=== PATIENT | male | born 1980 | race Caucasian/White ===

== ENCOUNTER 2016-05-29 08:56 | Emergency (ER) | payer BC ==
[~2016-05-29] VITALS: Ht 180.3 cm; Wt 136.1 kg
[~2016-05-29 08:56] MED LIST: ACHD5005 PO; AMLO5TAB2 PO; HYDR1TAB PO; LIRA0.6P3 SQ; METF1000 PO; MTF500T PO; MULT1CAP27 PO; OMEP20TA7 PO; OMG1KC PO
[2016-05-29] MEDS ORDERED: KETOROLAC 30 MG/ML VIAL IVP STA (09:06)
[2016-05-29] MEDS ORDERED: fentaNYL INJECTION 100 MCG/2 ML AMP IVP STA (09:06)
[2016-05-29] MEDS ORDERED: NS IV 1000 ML 1,000 ML IV STA (09:06)
[2016-05-29] MEDS ORDERED: ONDANSETRON 4 MG/2 ML (SDV) Z0FRAN IVP ONE (09:15)
--- NOTE | 2016-05-29 09:28 | ED GU-Male ---
General Chief Complaint: Abdominal/GI Problems Stated Complaint: LEFT FLANK PAIN Nursing Triage Note: AMB TO ROOM WITH PARENT C/O L FLANK PAIN . FAMILY PMH OF KIDNEY STONES Source: patient Exam Limitations: no limitations History of Present Illness Time seen by provider: 09:00 Initial Comments Here with report of left-sided flank pain onset at about 730. It has moved more anterior and lower. States he's had 2 episodes of vomiting today with a severe pain. Does have strong family history of kidney stones. He has never personally had a kidney stone. States that when he woke up this morning he did feel a burning or pain at the tip of his penis. Denies blood or discharge with urination. Denies fever or chills. Timing/Duration: this morning Severity/Quality: moderate, severe, aching, sharp Location: left flank Radiation: LLQ Activities at Onset: none Modifying Factors: Worsens With Movement, Worsens With Resting Associated Symptoms: abdominal pain, No dysuria, No fever/chills, No lower back pain, nausea/vomiting, No urinary frequency Allergies and Home Medications Allergies Coded Allergies: No Known Drug Allergies (Unverified , 03/10/11) Home Medications Amlodipine Besylate 5 Mg Tablet, 5 MG PO DAILY, (Reported) Liraglutide 0.6 Mg/0.1 Ml Pen.injctr, 1.8 MG SQ DAILY, (Reported) Metformin HCl 1,000 Mg Tablet, 1,000 MG PO BID, (Reported) Multivitamin 1 Each Capsule, 1 EACH PO DAILY, (Reported) [place] 3 Polyunsat Fatty Acids 1,000 Mg Cap, 1,000 MG PO DAILY, (Reported) Omeprazole 20 Mg Tablet.dr, 20 MG PO DAILY, (Reported) Constitutional: see HPI EENTM: no symptoms reported Respiratory: no symptoms reported Cardiovascular: no symptoms reported Gastrointestinal: see HPI, nausea, vomiting Genitourinary: flank pain, pain Musculoskeletal: no symptoms reported Skin: no symptoms reported All Other Systemes Reviewed Negative Unless Noted: Yes Past Lqjdhcw-Khwabe-Bxvdct Hx Patient Social History Alcohol Use: Occasionally Uses Recreational Drug Use: No Smoking Status: Never a Smoker Recent Foreign Travel: No Contact w/Someone Who Travel: No Recent Infectious Disease Expo: No Recent Hopitalizations: No Surgeries HX Surgeries: Yes (right knee scope, ) Respiratory Hx Respiratory Disorders: Yes (SLEEP APNEA, USES CPAP) Cardiovascular Hx Cardiac Disorders: Yes Cardiac Disorders: Hypertension Neurological Hx Neurological Disorders: No Reproductive System Hx Reproductive Disorders: Yes Genitourinary Hx Genitourinary Disorders: No Gastrointestinal Hx Gastrointestinal Disorders: No Musculoskeletal Hx Musculoskeletal Disorders: No Endocrine Hx Endocrine Disorders: Yes Endocrine Disorders: Diabetes, Non-Insulin dep HEENT HX ENT Disorders: No Psychosocial Hx Psychiatric Problems: No Blood Transfusions Hx Blood Disorders: No Reviewed Nursing Assessment Reviewed/Agree w Nursing PMH: Yes Family Medical History Significant Family History: No Pertinent Family Hx Physical Exam Vital Signs Vital Sign - Last 12Hours 05/29/16 08:59 Temp 96.7 Pulse 66 Resp 18 B/P (MAP) 132/80 O2 Delivery Room Air Capillary Refill : Less Than 3 Seconds General Appearance: WD/WN, no apparent distress HEENT: PERRL/EOMI, pharynx normal Neck: full range of motion, supple Cardiovascular: regular rate, rhythm, no murmur Respiratory: lungs clear, normal breath sounds Gastrointestinal: non tender, soft Back: normal inspection, no CVA tenderness, no vertebral tenderness Extremities: non-tender, normal inspection Neurologic/Psychiatric: alert, oriented x 3 Skin: normal color, warm/dry Progress/Results/Core Measures Results/Orders Lab Results Laboratory Tests Test 05/29/16 09:25 05/29/16 09:38 Range/Units White Blood Count 8.9 4.3-11.0 10^3/uL Red Blood Count 5.68 4.35-5.85 10^6/uL Hemoglobin 15.7 13.3-17.7 G/DL Hematocrit 46 40-54 % Mean Corpuscular Volume 82 80-99 FL Mean Corpuscular Hemoglobin 28 25-34 PG Mean Corpuscular Hemoglobin Concent 34 32-36 G/DL Red Cell Distribution Width 14.4 10.0-14.5 % Platelet Count 252 130-400 10^3/uL Mean Platelet Volume 10.7 H 7.4-10.4 FL Neutrophils (%) (Auto) 49 42-75 % Lymphocytes (%) (Auto) 40 12-44 % Monocytes (%) (Auto) 9 0-12 % Eosinophils (%) (Auto) 2 0-10 % Basophils (%) (Auto) 0 0-10 % Neutrophils # (Auto) 4.4 1.8-7.8 X 10^3 Lymphocytes # (Auto) 3.5 1.0-4.0 X 10^3 Monocytes # (Auto) 0.8 0.0-1.0 X 10^3 Eosinophils # (Auto) 0.1 0.0-0.3 10^3/uL Basophils # (Auto) 0.0 0.0-0.1 10^3/uL Sodium Level 140 135-145 MMOL/L Potassium Level 3.9 3.6-5.0 MMOL/L Chloride Level 108 H 98-107 MMOL/L Carbon Dioxide Level 23 21-32 MMOL/L Anion Gap 9 5-14 MMOL/L Blood Urea Nitrogen 13 7-18 MG/DL Creatinine 1.03 0.60-1.30 MG/DL Estimat Glomerular Filtration Rate > 60 BUN/Creatinine Ratio 13 Glucose Level 125 H 70-105 MG/DL Calcium Level 9.3 8.5-10.1 MG/DL Total Bilirubin 1.2 H 0.1-1.0 MG/DL Aspartate Amino Transf (AST/SGOT) 122 H 5-34 U/L Alanine Aminotransferase (ALT/SGPT) 189 H 0-55 U/L Alkaline Phosphatase 73 40-136 U/L Total Protein 7.4 6.4-8.2 G/DL Albumin 4.4 3.2-4.5 G/DL Urine Color YELLOW Urine Clarity CLEAR Urine pH 5 5-9 Urine Specific [place] 1.025 H 1.016-1.022 Urine Protein 1+ H NEGATIVE Urine Glucose (UA) NEGATIVE NEGATIVE Urine Ketones NEGATIVE NEGATIVE Urine Nitrite NEGATIVE NEGATIVE Urine Bilirubin NEGATIVE NEGATIVE Urine Urobilinogen NORMAL NORMAL MG/DL Urine Leukocyte Esterase NEGATIVE NEGATIVE Urine RBC (Auto) 1+ H NEGATIVE Urine RBC RARE /HPF Urine WBC RARE /HPF Urine Squamous Epithelial Cells 0-2 /HPF Urine Crystals NONE /LPF Urine Bacteria NEGATIVE /HPF Urine Casts NONE /LPF Urine Mucus MODERATE H /LPF Urine Culture Indicated NO My Orders Orders - JANNY BERGER MD Cbc With Automated Diff (05/29/16 09:06) Comprehensive Metabolic Panel (05/29/16 09:06) Ua Culture If Indicated (05/29/16 09:06) Ct Abd/Pelvis Wo(Kidney Stone) (05/29/16 09:06) Fentanyl Injection (Sublimaze Injection (05/29/16 09:06) Ketorolac Injection (Toradol Injection) (05/29/16 09:06) Ondansetron Injection (Zofran Injectio (05/29/16 09:15) Ns Iv 1000 Ml (Sodium Chloride 0.9%) (05/29/16 09:06) Saline Lock/Iv-Start (05/29/16 09:06) Medications Given in ED Current Medications Medications Dose Ordered Sig/Leon Route Start Time Stop Time Status Last Admin Dose Admin Ondansetron HCl 4 mg ONCE ONCE IVP 05/29/16 09:15 05/29/16 09:16 DC 05/29/16 09:19 4 MG Vital Signs/I&O Vital Sign - Last 12Hours 05/29/16 08:59 Temp 96.7 Pulse 66 Resp 18 B/P (MAP) 132/80 O2 Delivery Room Air Blood Pressure Mean: 97 Progress Note : Progress Note Seen and evaluated. IV, labs and UA ordered. CT abdomen and pelvis kidney stone protocol ordered. Toradol 30 mg IV and fentanyl 75 g IV ordered as well as normal saline 1 L bolus. Monitor patient. Pain resolved after meds and urination for UA. 1045: No return of pain. CT results noted below. I do believe that he probably has passed a small stone. We will initiate outpatient Keflex treatment for 3 days. Discharged home with return precautions. Patient verbalize understanding instructions and agreement with plan. Diagnostic Imaging Diagonstic Imaging: CT Plain Films/CT/US/NM/MRI: abdomen, pelvis Comments [facility] [place], [place] NAME: PHIL GUY [facility] REC#: [id number] PT STATUS: REG ER : 1980 PHYSICIAN: JANNY BERGER MD ADMIT DATE: 05/29/16/ER Draft Date of Exam:05/29/16 CT ABD/PELVIS WO(KIDNEY STONE) PROCEDURE: CT urinary tract, rule out kidney stone. TECHNIQUE: Multiple contiguous axial images were obtained through the abdomen and pelvis without the use of intravenous contrast. INDICATION: Abdominal pain. FINDINGS: The lung bases appear clear. The liver has diffuse hepatic steatosis. The spleen, the pancreas, and adrenals appear unremarkable. Persistent clips are seen. The kidneys demonstrate up to 2 mm nonobstructive stones bilaterally. There is no ureteric or bladder stones. No hydronephrosis. There is no bowel obstruction. No significant free fluid or fluid collection in the abdomen or pelvis seen. The abdominal aorta is normal in caliber. No periaortic significantly enlarged lymph nodes. The osseous structures demonstrate sclerotic focus in the left sacral ala measuring 8 mm in size similar to 2007 exam compatible with a bone island. IMPRESSION: Nonobstructive kidney stones up to 2 mm in size. No hydronephrosis. 2. Diffuse hepatic steatosis. Dictated on workstation # [id number] Dict: 05/29/16 1005 Trans: 05/29/16 1026 [facility] [id number] Interpreted by: DAYANA OSCAR MD Electronically signed by: Departure Impression Impression: Primary Impression: Kidney stone on left side Disposition: HOME, SELF-CARE Condition: Improved Departure-Patient Inst. Decision time for Depature: 10:50 Referrals: MARK GOVEA DO (PCP/Family) Primary Care Physician Patient Instructions: Kidney Stones (DC) Add. Discharge Instructions: All discharge instructions reviewed with patient and/or family. Voiced understanding. Drink plenty of fluids. You may take ibuprofen 800 mg every 8 hours as needed for pain. Follow-up with your Dr. in a few days for recheck. You may also follow-up with the urologist as needed. Return for worse pain, blood in your urine, fever, weakness, breathing problems or other concerns as needed. Take medications as directed. Scripts Cephalexin (Cephalexin) 500 Mg Tablet 500 MG PO BID, #6 TAB 0 Refills Prov: JANNY BERGER MD 05/29/16 JANNY BERGER MD May 29, 2016 09:28
[2016-05-29 09:32] LABS: BASOPHILS % (AUTO) 0 % (0-10); EOSINOPHILS # (AUTO) 0.1 10^3/uL (0.0-0.3); EOSINOPHILS % (AUTO) 2 % (0-10); LYMPHOCYTES # (AUTO) 3.5 X 10^3 (1.0-4.0); LYMPHOCYTES % (AUTO) 40 % (12-44); MEAN CORPUSCULAR HEMOGLOBIN 28 PG (25-34); MEAN CORPUSCULAR HGB CONC 34 G/DL (32-36); MEAN CORPUSCULAR VOLUME 82 FL (80-99); MEAN PLATELET VOLUME 10.7 FL (7.4-10.4); MONOCYTES # (AUTO) 0.8 X 10^3 (0.0-1.0); MONOCYTES % (AUTO) 9 % (0-12); NEUTROPHILS # (AUTO) 4.4 X 10^3 (1.8-7.8); NEUTROPHILS % (AUTO) 49 % (42-75); PLATELET COUNT 252 10^3/uL (130-400); RED BLOOD COUNT 5.68 10^6/uL (4.35-5.85); RED CELL DISTRIBUTION WIDTH 14.4 % (10.0-14.5); WHITE BLOOD COUNT 8.9 10^3/uL (4.3-11.0)
[2016-05-29 09:44] LABS: BILIRUBIN,URINE NEGATIVE (NEGATIVE); KETONES,URINE NEGATIVE (NEGATIVE); LEUKOCYTE ESTERASE ,URINE NEGATIVE (NEGATIVE); NITRITE,URINE NEGATIVE (NEGATIVE); PH,URINE 5 (5-9); PROTEIN,URINE 1+ (NEGATIVE); UROBILINOGEN,URINE NORMAL (NORMAL)
[2016-05-29 09:53] LABS: SQUAMOUS EPITHELIAL CELL,UR 0-2 /HPF; WBC,URINE RARE /HPF
[2016-05-29 09:56] LABS: ALANINE AMINOTRANSFERASE 189 U/L (0-55); ALBUMIN 4.4 G/DL (3.2-4.5); ANION GAP 9 MMOL/L (5-14); ASPARTATE AMINO TRANSFERASE 122 U/L (5-34); BILIRUBIN,TOTAL 1.2 MG/DL (0.1-1.0); BLOOD UREA NITROGEN 13 MG/DL (7-18); BUN/CREATININE RATIO 13; CALCIUM 9.3 MG/DL (8.5-10.1); CARBON DIOXIDE 23 MMOL/L (21-32); CHLORIDE 108 MMOL/L (98-107); CREATININE SERUM 1.03 MG/DL (0.60-1.30); GFR ESTIMATED > 60; GLUCOSE 125 MG/DL (70-105); POTASSIUM 3.9 MMOL/L (3.6-5.0); SODIUM 140 MMOL/L (135-145); TOTAL PROTEIN 7.4 G/DL (6.4-8.2)
--- NOTE | 2016-05-29 10:26 | Diagnostic Imaging Report ---
PROCEDURE: CT urinary tract, rule out kidney stone. TECHNIQUE: Multiple contiguous axial images were obtained through the abdomen and pelvis without the use of intravenous contrast. INDICATION: Abdominal pain. FINDINGS: The lung bases appear clear. The liver has diffuse hepatic steatosis. The spleen, the pancreas, and adrenals appear unremarkable. Persistent clips are seen. The kidneys demonstrate up to 2 mm nonobstructive stones bilaterally. There is no ureteric or bladder stones. No hydronephrosis. There is no bowel obstruction. No significant free fluid or fluid collection in the abdomen or pelvis seen. The abdominal aorta is normal in caliber. No periaortic significantly enlarged lymph nodes. The osseous structures demonstrate sclerotic focus in the left sacral ala measuring 8 mm in size similar to 2007 exam compatible with a bone island. IMPRESSION: 1. Nonobstructive kidney stones up to 2 mm in size. No hydronephrosis. 2. Diffuse hepatic steatosis. Dictated by: Dictated on workstation # [id number]
[2016-05-29] MEDS ORDERED: CEPH500T PO (10:55)
[2016-05-29 11:12] VITALS: BP 128/73
--- OUTSIDE RECORDS SUMMARY | 2016-06-23 04:16 | XMS REPORT | Continuity of Care Document ---
Author Author [facility] Organization [facility] Address Unknown Phone Unavailable Allergies Active Description Code Type Severity Reaction Onset Reported/Identified Relationship to Patient Clinical Status Yes No Known Drug Allergies [id number] Drug Allergy Unknown N/ A 03/10/2011 Medications Problems Date Dx Coded Attending Type Code Diagnosis Diagnosed By 03/10/2011 Ot 789.01 03/16/2011 Ot 251.1 03/16/2011 Ot 278.00 03/16/2011 Ot 401.9 03/16/2011 Ot 571.8 03/16/2011 Ot 574.00 03/16/2011 Ot V04.81 03/16/2011 Ot V85.36 12/12/2014 Ot 401.9 12/12/2014 Ot 786.09 12/12/2014 Ot 574.20 01/02/2015 Ot 401.9 01/02/2015 Ot 786.09 01/02/2015 Ot 574.20 04/28/2015 Ot 401.9 04/28/2015 Ot 786.09 04/28/2015 Ot 574.20 04/28/2015 NONI SNOWDEN, SKY Jensen Ot K21.9 04/28/2015 NONI SNOWDEN, SKY Jensen Ot R05 04/28/2015 NONI SNOWDEN, SKY Jensen Ot R13.19 04/28/2015 NONI SNOWDEN, SKY Jensen Ot Z01.818 04/28/2015 NONI SNOWDEN, SKY Jensen Ot K21.9 04/28/2015 NONI SNOWDEN, SKY Jensen Ot K44.9 04/28/2015 NONI SNOWDEN, SKY Jensen Ot R05 05/11/2015 NONI SNOWDEN, SKY Jensen Ot K21.9 05/11/2015 NONI SNOWDEN, SKY Jensen Ot K44.9 05/11/2015 NONI SNOWDEN, SKY Jensen Ot R05 01/02/2016 Ot 574.20 CHOLELITHIASIS NOS 06/01/2016 JANNY BERGER MD Ot 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 , 06/01/2016 JANNY BERGER MD, Ot I10 ESSENTIAL (PRIMARY) HYPERTENSION 06/01/2016 JANNY BERGER MD, Ot K76.0 FATTY (CHANGE OF) LIVER, NOT ELSEWHERE C 06/01/2016 JANNY BERGER MD, Ot N20.0 CALCULUS OF KIDNEY 06/01/2016 JANNY BERGER MD, Ot R10.32 LEFT LOWER QUADRANT PAIN 06/01/2016 JANNY BERGER MD, Ot Z79.84 LONG-TERM (CURRENT) USE OF ORAL HYPOGLYC 06/01/2016 JANNY BERGER MD, Ot Z79.899 OTHER LONG-TERM (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 THERAPY Procedures Results Test Result Range Complete blood count (CBC) with automated white blood cell (WBC) differential - 05/29/16 09:25 Blood leukocytes automated count (number/volume) 8.9 10*3/ uL 4.3-11.0 Blood erythrocytes automated count (number/volume) 5.68 10*6 /uL 4.35-5.85 Venous blood hemoglobin measurement (mass/volume) 15.7 g/dL 13.3-17.7 Blood hematocrit (volume fraction) 46 % 40-54 Automated erythrocyte mean corpuscular volume 82 [foz_us] 80-99 Automated erythrocyte mean corpuscular hemoglobin (mass per erythrocyte) 28 pg 25-34 Automated erythrocyte mean corpuscular hemoglobin concentration measurement ( mass/volume) 34 g/dL 32-36 Automated erythrocyte distribution width ratio 14.4 % 10.0-14.5 Automated blood platelet count (count/volume) 252 10*3/uL 130-400 Automated blood platelet mean volume measurement 10.7 [foz_ us] 7.4-10.4 Automated blood neutrophils/100 leukocytes 49 % 42-75 Automated blood lymphocytes/100 leukocytes 40 % 12-44 Blood monocytes/100 leukocytes 9 % 0-12 Automated blood eosinophils/100 leukocytes 2 % 0-10 Automated blood basophils/100 leukocytes 0 % 0-10 Blood neutrophils automated count (number/volume) 4.4 10*3 1.8-7.8 Blood lymphocytes automated count (number/volume) 3.5 10*3 1.0-4.0 Blood monocytes automated count (number/volume) 0.8 10*3 0.0-1.0 Automated eosinophil count 0.1 10*3/uL 0.0-0.3 Automated blood basophil count (count/volume) 0.0 10*3/uL 0.0-0.1 Comprehensive metabolic panel - 05/29/16 09:25 Serum or plasma sodium measurement (moles/volume) 140 mmol/ L 135-145 Serum or plasma potassium measurement (moles/volume) 3.9 mmol/L 3.6-5.0 Serum or plasma chloride measurement (moles/volume) 108 mmol /L 98-107 Carbon dioxide 23 mmol/L 21-32 Serum or plasma anion gap determination (moles/volume) 9 mmol/L 5-14 Serum or plasma urea nitrogen measurement (mass/volume) 13 mg/dL 7-18 Serum or plasma creatinine measurement (mass/volume) 1.03 mg /dL 0.60-1.30 Serum or plasma urea nitrogen/creatinine mass ratio 13 NRG Serum or plasma creatinine measurement with calculation of estimated glomerular filtration rate > NRG Serum or plasma glucose measurement (mass/volume) 125 mg/dL 70-105 Serum or plasma calcium measurement (mass/volume) 9.3 mg/dL 8.5-10.1 Serum or plasma total bilirubin measurement (mass/volume) 1.2 mg/dL 0.1-1.0 Serum or plasma alkaline phosphatase measurement (enzymatic activity/volume) 73 U/L 40-136 Serum or plasma aspartate aminotransferase measurement (enzymatic activity/ volume) 122 U/L 5-34 Serum or plasma alanine aminotransferase measurement (enzymatic activity/volume ) 189 U/L 0-55 Serum or plasma protein measurement (mass/volume) 7.4 g/dL 6.4-8.2 Serum or plasma albumin measurement (mass/volume) 4.4 g/dL 3.2-4.5 Complete urinalysis with reflex to culture - 05/29/16 09:38 Urine color determination YELLOW NRG Urine clarity determination CLEAR NRG Urine pH measurement by test strip 5 5- 9 Specific gravity of urine by test strip 1.025 1.016-1.022 Urine protein assay by test strip, semi-quantitative 1+ NEGATIVE Urine glucose detection by automated test strip NEGATIVE NEGATIVE Erythrocytes detection in urine sediment by light microscopy 1+ NEGATIVE Urine ketones detection by automated test strip NEGATIVE NEGATIVE Urine nitrite detection by test strip NEGATIVE NEGATIVE Urine total bilirubin detection by test strip NEGATIVE NEGATIVE Urine urobilinogen measurement by automated test strip (mass/volume) NORMAL NORMAL Urine leukocyte esterase detection by dipstick NEGATIVE NEGATIVE Automated urine sediment erythrocyte count by microscopy (number/high power field) RARE NRG Automated urine sediment leukocyte count by microscopy (number/high power field ) RARE NRG Bacteria detection in urine sediment by light microscopy NEGATIVE NRG Squamous epithelial cells detection in urine sediment by light microscopy 0-2 NRG Crystals detection in urine sediment by light microscopy NONE NRG Casts detection in urine sediment by light microscopy NONE NRG Mucus detection in urine sediment by light microscopy MODERATE NRG Complete urinalysis with reflex to culture NO NRG Encounters ACCT No. Visit Date/Time Discharge Status Pt. Type Provider Facility Loc./Unit Complaint [id number] 05/29/2016 08:58:00 2016 11:17:00 DIS Outpatient JANNY BERGER MD [facility] ER LEFT FLANK PAIN [id number] 04/28/2015 07:20:00 2015 09:20:00 DIS Outpatient SKY CHENEY MD [facility] [id number] 04/26/2015 05:37:00 ACT Outpatient SKY CHENEY MD [facility] PREOP [id number] 12/12/2014 15:35:00 Document Registration [id number] 12/12/2014 15:35:00 Document Registration [id number] 03/14/2011 10:00:00 Document Registration [id number] 06/11/2010 15:17:00 Document Registration
== END 2016-05-29 11:17 | disposition home or self-care (01) ==
LOC: EDUNIT# 08:56 → ER 08:58
DX: N20.0 Calculus of kidney (principal); K76.0 Fatty (change of) liver, not elsewhere classified; D11.9 Benign neoplasm of major salivary gland, unspecified; I10 Essential (primary) hypertension; Z79.84 Long term (current) use of oral hypoglycemic drugs; Z79.899 Other long term (current) drug therapy
CPT/HCPCS: 36415; 74176; 80053; 81000; 85025; 96361; 96374; 96375

== ENCOUNTER 2017-04-14 08:26 | Emergency (ER) | payer BC ==
[~2017-04-14] VITALS: Ht 180.3 cm; Wt 136.1 kg
[~2017-04-14 08:26] MED LIST changes: +CEPH500T PO
[2017-04-14] MEDS ORDERED: KETOROLAC 30 MG/ML VIAL ONE (09:36)
[2017-04-14 09:40] LABS: BASOPHILS % (AUTO) 0 % (0-10); EOSINOPHILS % (AUTO) 0 % (0-10); HEMATOCRIT 46 % (40-54); HEMOGLOBIN 15.7 G/DL (13.3-17.7); LYMPHOCYTES # (AUTO) 2.3 X 10^3 (1.0-4.0); LYMPHOCYTES % (AUTO) 23 % (12-44); MEAN CORPUSCULAR HEMOGLOBIN 27 PG (25-34); MEAN CORPUSCULAR HGB CONC 34 G/DL (32-36); MEAN CORPUSCULAR VOLUME 80 FL (80-99); MONOCYTES # (AUTO) 1.1 X 10^3 (0.0-1.0); MONOCYTES % (AUTO) 11 % (0-12); NEUTROPHILS # (AUTO) 6.7 X 10^3 (1.8-7.8); NEUTROPHILS % (AUTO) 66 % (42-75); PLATELET COUNT 268 10^3/uL (130-400); RED BLOOD COUNT 5.72 10^6/uL (4.35-5.85); RED CELL DISTRIBUTION WIDTH 14.5 % (10.0-14.5); WHITE BLOOD COUNT 10.2 10^3/uL (4.3-11.0)
[2017-04-14] MEDS ORDERED: NS IV 1000 ML 1,000 ML IV SCH (09:45)
[2017-04-14] MEDS ORDERED: KETOROLAC 15 MG/ML VIAL IVP ONE (09:45)
[2017-04-14 09:51] LABS: ALANINE AMINOTRANSFERASE 173 U/L (0-55); ALBUMIN 4.5 GM/DL (3.2-4.5); ALKALINE PHOSPHATASE 96 U/L (40-136); BILIRUBIN,TOTAL 0.8 MG/DL (0.1-1.0); BUN/CREATININE RATIO 14; CALCIUM 9.7 MG/DL (8.5-10.1); CARBON DIOXIDE 22 MMOL/L (21-32); CHLORIDE 106 MMOL/L (98-107); CREATININE SERUM 1.28 MG/DL (0.60-1.30); GFR ESTIMATED > 60; GLUCOSE 129 MG/DL (70-105); SODIUM 140 MMOL/L (135-145)
[2017-04-14 10:38] LABS: BILIRUBIN,URINE NEGATIVE (NEGATIVE); CLARITY,URINE CLEAR; COLOR,URINE YELLOW; GLUCOSE, URINE (UA) NEGATIVE (NEGATIVE); KETONES,URINE NEGATIVE (NEGATIVE); LEUKOCYTE ESTERASE ,URINE NEGATIVE (NEGATIVE); NITRITE,URINE NEGATIVE (NEGATIVE); PH,URINE 6 (5-9); PROTEIN,URINE NEGATIVE (NEGATIVE); UROBILINOGEN,URINE NORMAL (NORMAL)
[2017-04-14 10:45] LABS: BACTERIA,URINE NEGATIVE /HPF; RBC,URINE 0-2 /HPF
[2017-04-14] MEDS ORDERED: fentaNYL INJECTION 100 MCG/2 ML AMP IVP ONE (11:15)
--- NOTE | 2017-04-14 11:20 | ED Abdominal Pain ---
General Chief Complaint: Abdominal/GI Problems Stated Complaint: POSS KIDNEY STONE Nursing Triage Note: C/O L-FLANK PAIN THAT RADIATES TO LLQ ET L-GROIN THAT STARTED THIS AM AT 0100. PT. HX OF KIDNEY STONES. STATES HE FEELS ALMOST LIKE HE'S CONSTIPATED Sepsis Screen: No Definite Risk Source of Information: Patient, Spouse Exam Limitations: No Limitations History of Present Illness Date Seen by Provider: Apr 14, 2017 Time Seen by Provider: 11:00 Initial Comments Patient presents to ER by private conveyance with a chief complaint of sharp left-sided flank pain that radiates down into his groin and left testicle. He has no swelling tenderness of the testicle. He says this is similar to his kidney stone from before. No hematuria. He is having some nausea but no vomiting. The pain meds helped a little bit but he still needing a little more. No sweats or fevers or chills. Allergies and Home Medications Allergies Coded Allergies: No Known Drug Allergies (Unverified , 03/10/11) Home Medications Amlodipine Besylate 5 Mg Tablet, 5 MG PO DAILY, (Reported) Cephalexin 500 Mg Tablet, 500 MG PO BID, #6 Ref 0 Prescribed by: JANNY BERGER on 05/29/16 1055 Liraglutide 0.6 Mg/0.1 Ml Pen.injctr, 1.8 MG SQ DAILY, (Reported) Metformin HCl 1,000 Mg Tablet, 1,000 MG PO BID, (Reported) Multivitamin 1 Each Capsule, 1 EACH PO DAILY, (Reported) [place] 3 Polyunsat Fatty Acids 1,000 Mg Cap, 1,000 MG PO DAILY, (Reported) Omeprazole 20 Mg Tablet.dr, 20 MG PO DAILY, (Reported) Review of Systems Constitutional: No chills, No fever, No malaise Respiratory: Denies Cough, Denies Shortness of Air Cardiovascular: Denies Chest Pain, Denies Edema Gastrointestinal: See HPI, Denies Abdomen Distended, Abdominal Pain Genitourinary: Denies Burning, Denies Discharge Musculoskeletal: No back pain, No joint pain Skin: No pruritus, No rash Psychiatric/Neurological: Denies Headache, Denies Numbness Past Qwybpus-Jhlcow-Udkfdv Hx Patient Social History Alcohol Use: Denies Use Recreational Drug Use: No Smoking Status: Never a Smoker Recent Foreign Travel: No Contact w/Someone Who Travel: No Recent Infectious Disease Expo: No Recent Hopitalizations: No Cardiovascular Cardiac Disorders: Hypertension Reproductive System Hx Reproductive Disorders: Yes Endocrine Endocrine Disorders: Diabetes, Non-Insulin dep Family Medical History Significant Family History: No Pertinent Family Hx Physical Exam Vital Signs VS - Last 72 Hours, by Label 04/14/17 04/14/17 04/14/17 04/14/17 09:10 09:42 09:42 11:25 Temp 97.7 97.7 97.7 97.7 Pulse 83 Resp 20 B/P (MAP) 145/90 (108) Pulse Ox 96 O2 Delivery Room Air Capillary Refill : Less Than 3 Seconds General Appearance: WD/WN, mild distress HEENT: PERRL/EOMI, pharynx normal Neck: non-tender, supple, normal inspection Respiratory: no respiratory distress, no accessory muscle use Cardiovascular: normal peripheral pulses, regular rate, rhythm, no edema Gastrointestinal: normal bowel sounds, soft, other (left flank tenderness and left CVA tenderness percussion. He would prefer to wait there is) Extremities: normal inspection, no pedal edema, normal capillary refill Neurologic/Psychiatric: alert, oriented x 3 Skin: normal color, warm/dry Progress/Results/Core Measures Results/Orders Lab Results Laboratory Tests Test 04/14/17 09:22 04/14/17 10:25 Range/Units White Blood Count 10.2 4.3-11.0 10^3/uL Red Blood Count 5.72 4.35-5.85 10^6/uL Hemoglobin 15.7 13.3-17.7 G/DL Hematocrit 46 40-54 % Mean Corpuscular Volume 80 80-99 FL Mean Corpuscular Hemoglobin 27 25-34 PG Mean Corpuscular Hemoglobin Concent 34 32-36 G/DL Red Cell Distribution Width 14.5 10.0-14.5 % Platelet Count 268 130-400 10^3/uL Mean Platelet Volume 11.0 H 7.4-10.4 FL Neutrophils (%) (Auto) 66 42-75 % Lymphocytes (%) (Auto) 23 12-44 % Monocytes (%) (Auto) 11 0-12 % Eosinophils (%) (Auto) 0 0-10 % Basophils (%) (Auto) 0 0-10 % Neutrophils # (Auto) 6.7 1.8-7.8 X 10^3 Lymphocytes # (Auto) 2.3 1.0-4.0 X 10^3 Monocytes # (Auto) 1.1 H 0.0-1.0 X 10^3 Eosinophils # (Auto) 0.0 0.0-0.3 10^3/uL Basophils # (Auto) 0.0 0.0-0.1 10^3/uL Sodium Level 140 135-145 MMOL/L Potassium Level 4.0 3.6-5.0 MMOL/L Chloride Level 106 98-107 MMOL/L Carbon Dioxide Level 22 21-32 MMOL/L Anion Gap 12 5-14 MMOL/L Blood Urea Nitrogen 18 7-18 MG/DL Creatinine 1.28 0.60-1.30 MG/DL Estimat Glomerular Filtration Rate > 60 BUN/Creatinine Ratio 14 Glucose Level 129 H 70-105 MG/DL Calcium Level 9.7 8.5-10.1 MG/DL Total Bilirubin 0.8 0.1-1.0 MG/DL Aspartate Amino Transf (AST/SGOT) 110 H 5-34 U/L Alanine Aminotransferase (ALT/SGPT) 173 H 0-55 U/L Alkaline Phosphatase 96 40-136 U/L Total Protein 8.0 6.4-8.2 GM/DL Albumin 4.5 3.2-4.5 GM/DL Urine Color YELLOW Urine Clarity CLEAR Urine pH 6 5-9 Urine Specific [place] 1.015 L 1.016-1.022 Urine Protein NEGATIVE NEGATIVE Urine Glucose (UA) NEGATIVE NEGATIVE Urine Ketones NEGATIVE NEGATIVE Urine Nitrite NEGATIVE NEGATIVE Urine Bilirubin NEGATIVE NEGATIVE Urine Urobilinogen NORMAL NORMAL MG/DL Urine Leukocyte Esterase NEGATIVE NEGATIVE Urine RBC (Auto) 1+ H NEGATIVE Urine RBC 0-2 /HPF Urine WBC NONE /HPF Urine Squamous Epithelial Cells 2-5 /HPF Urine Crystals NONE /LPF Urine Bacteria NEGATIVE /HPF Urine Casts NONE /LPF Urine Mucus SMALL H /LPF Urine Culture Indicated NO My Orders Orders - SOPHY SWAIN Iv 1000 Ml (Sodium Chloride 0.9%) (04/14/17 09:45) Ketorolac Injection (Toradol Injection) (04/14/17 09:45) Ua Culture If Indicated (04/14/17 09:34) Cbc With Automated Diff (04/14/17 09:34) Comprehensive Metabolic Panel (04/14/17 09:34) Ketorolac Injection (Toradol Injection) (04/14/17 09:36) Ct Abd/Pelvis Wo(Kidney Stone) (04/14/17 11:05) Fentanyl Injection (Sublimaze Injection (04/14/17 11:15) Medications Given in ED Current Medications Medications Dose Ordered Sig/Leon Route Start Time Stop Time Status Last Admin Dose Admin Fentanyl Citrate 50 mcg ONCE ONCE IVP 04/14/17 11:15 04/14/17 11:16 DC 04/14/17 11:25 50 MCG Ketorolac Tromethamine 15 mg ONCE ONCE IVP 04/14/17 09:45 04/14/17 09:46 DC 04/14/17 09:42 15 MG Vital Signs/I&O Vital Sign - Last 12Hours 04/14/17 04/14/17 04/14/17 04/14/17 09:10 09:42 09:42 11:25 Temp 97.7 97.7 97.7 97.7 Pulse 83 Resp 20 B/P (MAP) 145/90 (108) Pulse Ox 96 O2 Delivery Room Air Blood Pressure Mean: 108 Diagnostic Imaging Diagonstic Imaging: CT Plain Films/CT/US/NM/MRI: abdomen, pelvis Comments VIA [facility] [place] [place] NAME: [facility] REC#: [id number] PT STATUS: REG ER : 1980 PHYSICIAN: SOPHY SWAIN MD ADMIT DATE: 04/14/17/ER Draft Date of Exam:04/14/17 CT ABD/PELVIS WO(KIDNEY STONE) PROCEDURE: CT urinary tract, rule out kidney stone. TECHNIQUE: Multiple contiguous axial images were obtained through the abdomen and pelvis without the use of intravenous contrast. INDICATION: Left flank pain. COMPARISON: Study compared 05/29/2016. FINDINGS: There is a tiny 1.4 mm calculus which appears to be entirely within the lumen of the urinary bladder and projects just slightly left of midline, believed to have recently passed through the left UVJ. There is very slight left ureteral ectasia and mild left residual hydronephrosis. A recently passed stone is felt most likely. There is very mild perinephric and periureteric edema. There are tiny additional intrarenal nonobstructing stones bilaterally, no opaque ureteral calculi are found at this exam. There is no diverticulitis or appendicitis. Prostate and seminal vesicles unremarkable. There is no pathological fecal loading and there is no bowel or biliary obstruction. There is a fatty liver with an absent gallbladder. The pancreas is normal. The adrenals negative. The aorta is nonaneurysmal. IMPRESSION: 1. There is a tiny stone within the lumen of the urinary bladder layering dependently just left of midline, likely recently passed from the left and accounting for the minimal left hydronephrosis and ureteral ectasia. There are additional punctate nonobstructing intrarenal stones bilaterally. 2. Fatty liver without biliary dilatation post cholecystectomy and a nonacute pancreas. 3. No acute bowel pathology. Dictated on workstation # [id number] Dict: 04/14/17 1134 Trans: 04/14/17 1142 CV [id number] Interpreted by: ANGEL CARMONA Electronically signed by: Reviewed: Reviewed by Me Departure Impression Impression: Primary Impression: Urinary bladder calculus Disposition: HOME, SELF-CARE Condition: Improved Departure-Patient Inst. Decision time for Depature: 12:54 Referrals: MARK GOVEA DO (PCP/Family) Primary Care Physician Patient Instructions: Kidney Stones (DC) Add. Discharge Instructions: Drink lots of water. Caffeine is okay. Strain your urine seeking catch the stone. Use the pain medicine every 6 hours 1 tablet as needed to control your pain. He can also use ibuprofen 800 mg every 8 hours. If you begin to have fevers, chills or nausea and vomiting you can return to your doctor to have this looked at. Otherwise expect even at day or 2 after you've passed the stone to have some pain or possibly discolored urine. All discharge instructions reviewed with patient and/or family. Voiced understanding. Scripts Hydrocodone Bit/Acetaminophen (Hydrocodone/Acetaminophen 5/325mg Tablet) 1 Tab Tab 1 EACH PO Q6H Y for BREAKTHROUGH PAIN, #15 TAB 0 Refills Prov: SOPHY SWAIN 04/14/17 Copy Copies To 1: MARK GOVEA TITUS J Apr 14, 2017 11:20
--- NOTE | 2017-04-14 11:42 | Diagnostic Imaging Report ---
PROCEDURE: CT urinary tract, rule out kidney stone. TECHNIQUE: Multiple contiguous axial images were obtained through the abdomen and pelvis without the use of intravenous contrast. INDICATION: Left flank pain. COMPARISON: Study compared 05/29/2016. FINDINGS: There is a tiny 1.4 mm calculus which appears to be entirely within the lumen of the urinary bladder and projects just slightly left of midline, believed to have recently passed through the left UVJ. There is very slight left ureteral ectasia and mild left residual hydronephrosis. A recently passed stone is felt most likely. There is very mild perinephric and periureteric edema. There are tiny additional intrarenal nonobstructing stones bilaterally, no opaque ureteral calculi are found at this exam. There is no diverticulitis or appendicitis. Prostate and seminal vesicles unremarkable. There is no pathological fecal loading and there is no bowel or biliary obstruction. There is a fatty liver with an absent gallbladder. The pancreas is normal. The adrenals negative. The aorta is nonaneurysmal. IMPRESSION: 1. There is a tiny stone within the lumen of the urinary bladder layering dependently just left of midline, likely recently passed from the left and accounting for the minimal left hydronephrosis and ureteral ectasia. There are additional punctate nonobstructing intrarenal stones bilaterally. 2. Fatty liver without biliary dilatation post cholecystectomy and a nonacute pancreas. 3. No acute bowel pathology. Dictated by: Dictated on workstation # [id number]
[2017-04-14] MEDS ORDERED: ACHD5005 PO (12:56)
[2017-04-14 13:22] VITALS: BP 136/88
--- OUTSIDE RECORDS SUMMARY | 2017-04-17 12:12 | XMS REPORT | Continuity of Care Document ---
Author Author [facility] Organization [facility] Address Unknown Phone Unavailable Allergies Active Description Code Type Severity Reaction Onset Reported/Identified Relationship to Patient Clinical Status Yes No Known Drug Allergies [id number] Drug Allergy Unknown N/A 03/10/2011 Medications There is no data. 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, 05/29/2016 JANNY BERGER MD Ot I10 ESSENTIAL (PRIMARY) HYPERTENSION 05/29/2016 JANNY BERGER MD Ot K76.0 FATTY (CHANGE OF) LIVER, NOT ELSEWHERE C 05/29/2016 JANNY BERGER MD Ot N20.0 CALCULUS OF KIDNEY 05/29/2016 JANNY BERGER MD Ot R10.32 LEFT LOWER QUADRANT PAIN 05/29/2016 JANNY BERGER MD 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 05/29/2016 JANNY BERGER MD Ot 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 06/01/2016 JANNY BERGER MD Ot 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, 06/01/2016 JANNY BERGER MD Ot I10 ESSENTIAL (PRIMARY) HYPERTENSION 06/01/2016 JANNY BERGER MD Ot K76.0 FATTY (CHANGE OF) LIVER, NOT ELSEWHERE C 06/01/2016 JANNY BERGER MD Ot N20.0 CALCULUS OF KIDNEY 06/01/2016 JANNY BERGER MD Ot R10.32 LEFT LOWER QUADRANT PAIN 06/01/2016 JANNY BERGER MD Ot Z79.84 [facility] (CURRENT) USE OF ORAL HYPOGLYC 06/01/2016 JANNY BERGER MD Ot 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 10/30/2016 SKY CHENEY MD Ot K21.9 GASTRO-ESOPHAGEAL REFLUX DISEASE WITHOUT 10/30/2016 SKY CHENEY MD Ot R05 COUGH 10/30/2016 SKY CHENEY MD Ot R13.19 OTHER DYSPHAGIA 10/30/2016 SKY CHENEY MD Ot Z01.818 ENCOUNTER FOR OTHER PREPROCEDURAL EXAMIN 11/07/2016 SKY CHENEY MD Ot K21.9 GASTRO-ESOPHAGEAL REFLUX DISEASE WITHOUT 11/07/2016 SKY CHENEY MD Ot R05 COUGH 11/07/2016 SKY CHENEY MD Ot R13.19 OTHER DYSPHAGIA 11/07/2016 SKY CHENEY MD Ot Z01.818 ENCOUNTER FOR OTHER PREPROCEDURAL EXAMIN 03/11/2017 SKY CHENEY MD, Ot K21.9 GASTRO-ESOPHAGEAL REFLUX DISEASE WITHOUT 03/11/2017 SKY CHENEY MD, Ot R05 COUGH 03/11/2017 SKY CHENEY MD, Ot R13.19 OTHER DYSPHAGIA 03/11/2017 SKY CHENEY MD, Ot Z01.818 ENCOUNTER FOR OTHER PREPROCEDURAL EXAMIN Procedures There is no data. Results Test Result Range Complete blood count (CBC) with automated white blood cell (WBC) differential - 05/29/16 09:25 Blood leukocytes automated count (number/volume) 8.9 10*3/uL 4.3-11.0 Blood erythrocytes automated count (number/volume) 5.68 10*6/uL 4.35-5.85 Venous blood hemoglobin measurement (mass/volume) 15.7 [...] Automated blood platelet mean volume measurement 10.7 [foz_us] 7.4-10.4 Automated blood neutrophils/100 leukocytes 49 % [...] Serum or plasma sodium measurement (moles/volume) 140 mmol/L 135-145 Serum or plasma potassium measurement (moles/volume) 3.9 mmol/L 3.6-5.0 Serum or plasma chloride measurement (moles/volume) 108 mmol/L 98-107 Carbon dioxide 23 mmol/L 21-32 Serum or plasma anion gap determination (moles/volume) 9 mmol/L 5-14 Serum or plasma urea nitrogen measurement (mass/volume) 13 mg/dL 7-18 Serum or plasma creatinine measurement (mass/volume) 1.03 mg/dL 0.60-1.30 Serum or plasma urea nitrogen/creatinine mass [...] Urine pH measurement by test strip 5 5-9 Specific gravity of urine by test strip 1.025 1.016- 1.022 Urine protein assay by test strip, semi-quantitative [...] Status Pt. Type Provider Facility Loc./Unit Complaint [id number] 05/29/2016 08:58:00 05/29/2016 11:17:00 DIS Emergency JANNY BERGER MD [facility] ER LEFT FLANK PAIN [id number] 04/28/2015 07:20:00 04/28/2015 09:20:00 DIS Outpatient SKY CHENEY MD [facility] GERD;COUGH;DYSPHAGIA [id number] 04/26/2015 05:37:00 04/26/2015 23:59:59 CLS Outpatient SKY CHENEY MD [facility] PREOP GERD;COUGH;DYSPHAGIA [id number] 12/12/2014 15:35:00 Document Registration [id number] 12/12/2014 15:35:00 Document Registration [id number] 03/14/2011 10:00:00 Document Registration [id number] 06/11/2010 15:17:00 Document Registration
== END 2017-04-14 13:22 | disposition home or self-care (01) ==
LOC: EDUNIT# 08:26 → ER 08:27
DX: N21.0 Calculus in bladder (principal); I10 Essential (primary) hypertension; E11.9 Type 2 diabetes mellitus without complications; Z79.84 Long term (current) use of oral hypoglycemic drugs
CPT/HCPCS: 36415; 74176; 80053; 81000; 85025; 96374; 96375

== ENCOUNTER → 2017-04-21 | Outpatient (CLI) | payer BC | LOC: DSME 12:00 | PROVIDERS: ATTEND Internal Medicine | DX: E11.9 Type 2 diabetes mellitus without complications (principal); I10 Essential (primary) hypertension; E66.9 Obesity, unspecified ==

== ENCOUNTER → 2018-04-24 | Outpatient (CLI) | payer BC ==
[~2018-04-24] MED LIST changes: +CATHETER FLUSH 10 ML SYR IV PRN; +IOHEXOL 350 MG/ML 100 ML (OMNIPAQUE 350) VIAL IV ONE; +METF-399 PO; -METF1000 PO; +NS 100 ML (IVPB) BAG IV ONE; +RECEIVED CONTRAST (Hold Metformin) IV SCH; +RT-ALBUTEROL SULF 2.5 MG/3 ML PRE-MIX VIAL INH ONE
--- NOTE | 2018-04-24 15:28 | Diagnostic Imaging Report ---
PROCEDURE: CT chest with contrast only. TECHNIQUE: Multiple contiguous axial images were obtained through the chest after administration of intravenous contrast. INDICATION: Two-month history of cough. FINDINGS: The lungs are clear. The heart and vessels normal. There is no effusion or pneumothorax. No thoracic lymphadenopathy. No acute chest wall pathology. The liver is fatty. There is no bile duct dilatation. The adrenals and pancreas negative where they were partially visualized. IMPRESSION: Negative chest. Hepatic steatosis. Dictated by: Dictated on workstation # [id number]
== END ==
LOC: RT 12:49
PROVIDERS: ATTEND Nurse Practitioner Family
DX: R06.00 Dyspnea, unspecified (principal); G47.33 Obstructive sleep apnea (adult) (pediatric); J45.998 Other asthma; J30.2 Other seasonal allergic rhinitis; F17.220 Nicotine dependence, chewing tobacco, uncomplicated; K76.0 Fatty (change of) liver, not elsewhere classified
CPT/HCPCS: 71260; 94060; 94726; 94729

== ENCOUNTER 2018-09-29 07:48 | Emergency (ER) | payer BC ==
[~2018-09-29] VITALS: Ht 180.3 cm; Wt 136.1 kg
[~2018-09-29 07:48] MED LIST changes: -CATHETER FLUSH 10 ML SYR IV PRN; -IOHEXOL 350 MG/ML 100 ML (OMNIPAQUE 350) VIAL IV ONE; -NS 100 ML (IVPB) BAG IV ONE; -RECEIVED CONTRAST (Hold Metformin) IV SCH; -RT-ALBUTEROL SULF 2.5 MG/3 ML PRE-MIX VIAL INH ONE
--- OUTSIDE RECORDS SUMMARY | 2018-09-29 07:53 | XMS REPORT | Continuity of Care Document ---
Author Organization Unknown Address Unknown Phone Unavailable Allergies Active Description Code Type Severity Reaction Onset Reported/Identified Relationship to Patient Clinical Status Yes No Known Drug Allergies [id number] Drug Allergy Unknown N/A 03/10/2011 Medications There [...] 04/28/2015 NONI SNOWDEN, SKY Jensen Ot K21.9 GASTRO-ESOPHAGEAL REFLUX DISEASE WITHOUT 04/28/2015 NONI SNOWDEN, SKY Jensen Ot K44.9 DIAPHRAGMATIC HERNIA WITHOUT OBSTRUCTION 04/28/2015 NONI SNOWDEN, KSY Jensen Ot R05 COUGH 05/11/2015 NONI SNOWDEN, SKY Jensen Ot K21.9 05/11/2015 NONI SNOWDEN, SKY Jensen Ot K44.9 05/11/2015 SKY CHENEY MD Ot R05 01/02/2016 Ot 574.20 CHOLELITHIASIS NOS 05/29/2016 CELINE SNOWDEN, JANNY Jensen Ot 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, 05/29/2016 JANNY BERGER MD Ot I10 ESSENTIAL (PRIMARY) HYPERTENSION 05/29/2016 JANNY BERGER MD Ot K76.0 FATTY (CHANGE OF) LIVER, NOT ELSEWHERE C 05/29/2016 JANNY BERGER MD Ot N20.0 CALCULUS OF KIDNEY 05/29/2016 JANNY BERGER MD Ot R10.32 LEFT LOWER QUADRANT PAIN 05/29/2016 JANNY BERGER MD Ot Z79.84 SPECIAL EDUCATION PROFESSIONAL (CURRENT) USE OF ORAL HYPOGLYC 05/29/2016 JANNY BERGER MD Ot Z79.899 OTHER INTERMEDIATE (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 THERAPY 06/01/2016 JANNY BERGER MD Ot 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, 06/01/2016 JANNY BERGER MD Ot I10 ESSENTIAL (PRIMARY) HYPERTENSION 06/01/2016 JANNY BERGER MD Ot K76.0 FATTY (CHANGE OF) LIVER, NOT ELSEWHERE C 06/01/2016 JANNY BERGER MD Ot N20.0 CALCULUS OF KIDNEY 06/01/2016 JANNY BERGER MD Ot R10.32 LEFT LOWER QUADRANT PAIN 06/01/2016 JANNY BERGER MD Ot Z79.84 SPECIAL EDUCATION PROFESSIONAL (CURRENT) USE OF ORAL HYPOGLYC 06/01/2016 JANNY BERGER MD Ot Z79.899 OTHER SPECIAL EDUCATION PROFESSIONAL (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 THERAPY 10/30/2016 SKY CHENEY MD [...] FOR OTHER PREPROCEDURAL EXAMIN 03/11/2017 SKY CHENEY MD Ot K21.9 GASTRO-ESOPHAGEAL REFLUX DISEASE WITHOUT 03/11/2017 SKY CHENEY MD Ot R05 COUGH 03/11/2017 SKY CHENEY MD Ot R13.19 OTHER DYSPHAGIA 03/11/2017 SKY CHENEY MD Ot Z01.818 ENCOUNTER FOR OTHER PREPROCEDURAL EXAMIN 04/14/2017 SKY CHENEY MD Ot K21.9 GASTRO-ESOPHAGEAL REFLUX DISEASE WITHOUT 04/14/2017 SYK CHENEY MD Ot R05 COUGH 04/14/2017 SKY CHENEY MD Ot R13.19 OTHER DYSPHAGIA 04/14/2017 SKY CHENEY MD Ot Z01.818 ENCOUNTER FOR OTHER PREPROCEDURAL EXAMIN 04/14/2017 SOPHY SWAIN MD Ot E11.9 TYPE 2 DIABETES MELLITUS WITHOUT COMPLIC 04/14/2017 SOPHY SWAIN MD Ot I10 ESSENTIAL (PRIMARY) HYPERTENSION 04/14/2017 SOPHY SWAIN MD Ot N21.0 CALCULUS IN BLADDER 04/14/2017 SOPHY SWAIN MD Ot R10.9 UNSPECIFIED ABDOMINAL PAIN 04/14/2017 SOPHY SWAIN MD Ot Z79.84 SPECIAL EDUCATION PROFESSIONAL (CURRENT) USE OF ORAL HYPOGLYC 04/16/2017 SOPHY SWAIN MD Ot E11.9 TYPE 2 DIABETES MELLITUS WITHOUT COMPLIC 04/16/2017 SOPHY SWAIN MD Ot I10 ESSENTIAL (PRIMARY) HYPERTENSION 04/16/2017 SOPHY SWAIN MD J Ot N21.0 CALCULUS IN BLADDER 04/16/2017 SOPHY SWAIN MD Ot R10.9 UNSPECIFIED ABDOMINAL PAIN 04/16/2017 SOPHY SWAIN MD Ot Z79.84 SPECIAL EDUCATION PROFESSIONAL (CURRENT) USE OF ORAL HYPOGLYC 05/15/2017 MARK GOVEA DO Ot E11.9 TYPE 2 DIABETES MELLITUS WITHOUT COMPLIC 05/15/2017 MARK GOVEA DO Ot E66.9 OBESITY, UNSPECIFIED 05/15/2017 MARK GOVEA DO Ot I10 ESSENTIAL (PRIMARY) HYPERTENSION 05/17/2017 MARK GOVEA DO Ot E11.9 TYPE 2 DIABETES MELLITUS WITHOUT COMPLIC 05/17/2017 MARK GOVEA DO Ot E66.9 OBESITY, UNSPECIFIED 05/17/2017 MARK GOVEA DO Ot I10 ESSENTIAL (PRIMARY) HYPERTENSION 05/20/2017 MARK GOVEA DO Ot E11.9 TYPE 2 DIABETES MELLITUS WITHOUT COMPLIC 05/20/2017 MARK GOVEA DO Ot E66.9 OBESITY, UNSPECIFIED 05/20/2017 MARK GOVEA DO Ot I10 ESSENTIAL (PRIMARY) HYPERTENSION 05/21/2017 MARK GOVEA DO Ot E11.9 TYPE 2 DIABETES MELLITUS WITHOUT COMPLIC 05/21/2017 MARK GOVEA DO Ot E66.9 OBESITY, UNSPECIFIED 05/21/2017 MARK GOVEA DO Ot I10 ESSENTIAL (PRIMARY) HYPERTENSION 04/27/2018 LENKA HERRERAINE Bibiana FOAM RUBBER CURER Ot F17.220 NICOTINE DEPENDENCE, CHEWING TOBACCO, UN 04/27/2018 SHARON ALCIDES E FOAM RUBBER CURER Ot G47.33 OBSTRUCTIVE SLEEP APNEA (ADULT) (PEDIATR 04/27/2018 SHARON ALCIDES E FOAM RUBBER CURER Ot J30.2 OTHER SEASONAL ALLERGIC RHINITIS 04/27/2018 SHARON ALCIDES E FOAM RUBBER CURER Ot J45.998 OTHER ASTHMA 04/27/2018 SHARON ALCIDES E FOAM RUBBER CURER Ot K76.0 FATTY (CHANGE OF) LIVER, NOT ELSEWHERE C 04/27/2018 SHARON, ALCIDES E FOAM RUBBER CURER Ot R06.00 DYSPNEA, UNSPECIFIED 05/04/2018 SHARON, ALCIDES E FOAM RUBBER CURER Ot F17.220 NICOTINE DEPENDENCE, CHEWING TOBACCO, UN 05/04/2018 SHARON, ALCIDES E FOAM RUBBER CURER Ot G47.33 OBSTRUCTIVE SLEEP APNEA (ADULT) (PEDIATR 05/04/2018 SHARON, ALCIDES E FOAM RUBBER CURER Ot J30.2 OTHER SEASONAL ALLERGIC RHINITIS 05/04/2018 LENKA HERRERAINE E FOAM RUBBER CURER Ot J45.998 OTHER ASTHMA 05/04/2018 SHARON ALCIDES E FOAM RUBBER CURER Ot K76.0 FATTY (CHANGE OF) LIVER, NOT ELSEWHERE C 05/04/2018 SHARON ALCIDES E FOAM RUBBER CURER Ot R06.00 DYSPNEA, UNSPECIFIED 05/11/2018 NONI SNOWDEN, SKY Jensen Ot K21.9 GASTRO-ESOPHAGEAL REFLUX DISEASE WITHOUT 05/11/2018 SKY CHENEY MD Ot R05 COUGH 05/11/2018 SKY CHENEY MD Ot R13.19 OTHER DYSPHAGIA 05/11/2018 SKY CHENEY MD Ot Z01.818 ENCOUNTER FOR OTHER PREPROCEDURAL EXAMIN 05/11/2018 MARK GOVEA DO Ot E11.9 TYPE 2 DIABETES MELLITUS WITHOUT COMPLIC 05/11/2018 MARK GOVEA DO Ot E66.9 OBESITY, UNSPECIFIED 05/11/2018 MARK GOVEA DO Ot I10 ESSENTIAL (PRIMARY) HYPERTENSION 05/11/2018 ALCIDES HERRERA FOAM RUBBER CURER Ot F17.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 NICOTINE DEPENDENCE, CHEWING TOBACCO, UN 05/11/2018 ALCIDES HERRERA FOAM RUBBER CURER Ot G47.33 OBSTRUCTIVE SLEEP APNEA (ADULT) (PEDIATR 05/11/2018 ALCIDES HERRERA FOAM RUBBER CURER Ot J30.2 OTHER SEASONAL ALLERGIC RHINITIS 05/11/2018 ALCIDES HERRERA FOAM RUBBER CURER Ot J45.998 OTHER ASTHMA 05/11/2018 ALCIDES HERRERA FOAM RUBBER CURER Ot K76.0 FATTY (CHANGE OF) LIVER, NOT ELSEWHERE C 05/11/2018 LENKA HERRERAINE Bibiana FOAM RUBBER CURER Ot R06.00 DYSPNEA, UNSPECIFIED 06/12/2018 ALCIDES HERRERA FOAM RUBBER CURER Ot F17.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 Results Test [...] Automated erythrocyte mean corpuscular hemoglobin concentration measurement (mass/volume) 34 g/dL 32-36 Automated erythrocyte distribution width ratio 14.4 % 10.0- 14.5 Automated blood platelet count (count/volume) 252 10*3/uL [...] Blood monocytes automated count (number/volume) 0.8 10*3 0.0- 1.0 Automated eosinophil count 0.1 10*3/uL 0.0-0.3 Automated [...] Serum or plasma aspartate aminotransferase measurement (enzymatic activity/volume) 122 U/L 5-34 Serum or plasma alanine aminotransferase measurement (enzymatic activity/volume) 189 U/L 0-55 Serum or plasma protein [...] sediment leukocyte count by microscopy (number/high power field) RARE NRG Bacteria detection in urine sediment by light microscopy NEGATIVE NRG Squamous epithelial cells detection in urine sediment by light microscopy 0-2 NRG Crystals detection in urine sediment by light microscopy NONE NRG Casts detection in urine sediment by light microscopy NONE NRG Mucus detection in urine sediment by light microscopy MODERATE NRG Complete urinalysis with reflex to culture NO NRG Complete blood count (CBC) with automated white blood cell (WBC) differential - 04/14/17 09:22 Blood leukocytes automated count (number/volume) 10.2 10*3/uL 4.3-11.0 Blood erythrocytes automated count (number/volume) 5.72 10*6/uL 4.35-5.85 Venous blood hemoglobin measurement (mass/volume) 15.7 g/dL 13.3-17.7 Blood hematocrit (volume fraction) 46 % 40-54 Automated erythrocyte mean corpuscular volume 80 [foz_us] 80-99 Automated erythrocyte mean corpuscular hemoglobin (mass per erythrocyte) 27 pg 25-34 Automated erythrocyte mean corpuscular hemoglobin concentration measurement (mass/volume) 34 g/dL 32-36 Automated erythrocyte distribution width ratio 14.5 % 10.0- 14.5 Automated blood platelet count (count/volume) 268 10*3/uL 130-400 Automated blood platelet mean volume measurement 11.0 [foz_us] 7.4-10.4 Automated blood neutrophils/100 leukocytes 66 % 42-75 Automated blood lymphocytes/100 leukocytes 23 % 12-44 Blood monocytes/100 leukocytes 11 % 0-12 Automated blood eosinophils/100 leukocytes 0 % 0-10 Automated blood basophils/100 leukocytes 0 % 0-10 Blood neutrophils automated count (number/volume) 6.7 10*3 1.8-7.8 Blood lymphocytes automated count (number/volume) 2.3 10*3 1.0-4.0 Blood monocytes automated count (number/volume) 1.1 10*3 0.0- 1.0 Automated eosinophil count 0.0 10*3/uL 0.0-0.3 Automated blood basophil count (count/volume) 0.0 10*3/uL 0.0-0.1 Comprehensive metabolic panel - 04/14/17 09:22 Serum or plasma sodium measurement (moles/volume) 140 mmol/L 135-145 Serum or plasma potassium measurement (moles/volume) 4.0 mmol/L 3.6-5.0 Serum or plasma chloride measurement (moles/volume) 106 mmol/L 98-107 Carbon dioxide 22 mmol/L 21-32 Serum or plasma anion gap determination (moles/volume) 12 mmol/L 5-14 Serum or plasma urea nitrogen measurement (mass/volume) 18 mg/dL 7-18 Serum or plasma creatinine measurement (mass/volume) 1.28 mg/dL 0.60-1.30 Serum or plasma urea nitrogen/creatinine mass ratio 14 NRG Serum or plasma creatinine measurement with calculation of estimated glomerular filtration rate > NRG Serum or plasma glucose measurement (mass/volume) 129 mg/dL 70-105 Serum or plasma calcium measurement (mass/volume) 9.7 mg/dL 8.5-10.1 Serum or plasma total bilirubin measurement (mass/volume) 0.8 mg/dL 0.1-1.0 Serum or plasma alkaline phosphatase measurement (enzymatic activity/volume) 96 U/L 40-136 Serum or plasma aspartate aminotransferase measurement (enzymatic activity/volume) 110 U/L 5-34 Serum or plasma alanine aminotransferase measurement (enzymatic activity/volume) 173 U/L 0-55 Serum or plasma protein measurement (mass/volume) 8.0 g/dL 6.4-8.2 Serum or plasma albumin measurement (mass/volume) 4.5 g/dL 3.2-4.5 Complete urinalysis with reflex to culture - 04/14/17 10:25 Urine color determination YELLOW NRG Urine clarity determination CLEAR NRG Urine pH measurement by test strip 6 5-9 Specific gravity of urine by test strip 1.015 1.016-1.022 Urine protein assay by test strip, semi-quantitative NEGATIVE NEGATIVE Urine glucose detection by automated test [...] erythrocyte count by microscopy (number/high power field) [HPF] NRG Automated urine sediment leukocyte count by microscopy (number/high power field) NONE NRG Bacteria detection in urine sediment by light microscopy NEGATIVE NRG Squamous epithelial cells detection in urine sediment by light microscopy 2-5 NRG Crystals detection in urine sediment by light microscopy NONE NRG Casts detection in urine sediment by light microscopy NONE NRG Mucus detection in urine sediment by light microscopy SMALL NRG Complete urinalysis with reflex to culture NO NRG Encounters ACCT No. Visit Date/Time Discharge Status Pt. Type Provider Facility Loc./Unit Complaint [id number] 04/24/2018 12:49:00 04/24/2018 23:59:59 CLS Outpatient ALCIDES HERRERA APRN [facility] RT DYSPNEA, [place] OTHER ABNORMALTIES OF BREATHING [id number] 04/06/2018 15:21:00 04/06/2018 23:59:59 CLS Preadmit ALCIDES HERRERA APRN [facility] RAD DYSPNEA, [place], OTHER ABNORMALITIES OF BREATHING [id number] 04/21/2017 12:00:00 04/21/2017 23:59:59 CLS Outpatient MARK GOVEA DO [facility] DSME TYPE 2 DIABETES [id number] 04/14/2017 08:27:00 04/14/2017 13:22:00 DIS Emergency SOPHY SWAIN MD [facility] ER POSS KIDNEY STONE [id number] 05/29/2016 08:58:00 05/29/2016 11:17:00 DIS Emergency JANNY BERGER MD [facility] ER LEFT FLANK PAIN [id number] 04/28/2015 07:20:00 04/28/2015 09:20:00 DIS Outpatient SKY CHENEY MD [facility] SD GERD;COUGH;DYSPHAGIA [id number] 04/26/2015 05:37:00 04/26/2015 23:59:59 CLS Outpatient SKY CHENEY MD [facility] PREOP GERD;COUGH;DYSPHAGIA [id number] 12/12/2014 15:35:00 Document Registration [id number] 12/12/2014 15:35:00 Document Registration [id number] 03/14/2011 10:00:00 Document Registration [id number] 06/11/2010 15:17:00 Document Registration
[2018-09-29] MEDS ORDERED: KETOROLAC 30 MG/ML VIAL ONE (08:10)
[2018-09-29] MEDS ORDERED: fentaNYL INJECTION 100 MCG/2 ML AMP IVP STA (08:11)
[2018-09-29] MEDS ORDERED: KETOROLAC 30 MG/ML VIAL IVP STA (08:11)
[2018-09-29] MEDS ORDERED: NS IV 1000 ML 1,000 ML IV STA (08:11)
[2018-09-29] MEDS ORDERED: ONDANSETRON 4 MG/2 ML (SDV) Z0FRAN IVP ONE (08:15)
[2018-09-29 08:18] LABS: BASOPHILS % (AUTO) 0 % (0-10); EOSINOPHILS # (AUTO) 0.1 10^3/uL (0.0-0.3); EOSINOPHILS % (AUTO) 1 % (0-10); HEMATOCRIT 45 % (40-54); HEMOGLOBIN 14.9 G/DL (13.3-17.7); LYMPHOCYTES # (AUTO) 2.6 X 10^3 (1.0-4.0); LYMPHOCYTES % (AUTO) 26 % (12-44); MEAN CORPUSCULAR HEMOGLOBIN 27 PG (25-34); MEAN CORPUSCULAR HGB CONC 33 G/DL (32-36); MEAN CORPUSCULAR VOLUME 81 FL (80-99); MEAN PLATELET VOLUME 10.6 FL (7.4-10.4); MONOCYTES # (AUTO) 0.9 X 10^3 (0.0-1.0); MONOCYTES % (AUTO) 9 % (0-12); NEUTROPHILS # (AUTO) 6.3 X 10^3 (1.8-7.8); NEUTROPHILS % (AUTO) 64 % (42-75); PLATELET COUNT 308 10^3/uL (130-400); RED CELL DISTRIBUTION WIDTH 14.9 % (10.0-14.5); WHITE BLOOD COUNT 9.8 10^3/uL (4.3-11.0)
[2018-09-29 08:23] LABS: CLARITY,URINE CLEAR; COLOR,URINE YELLOW; GLUCOSE, URINE (UA) NEGATIVE (NEGATIVE); KETONES,URINE 1+ (NEGATIVE); LEUKOCYTE ESTERASE ,URINE NEGATIVE (NEGATIVE); NITRITE,URINE NEGATIVE (NEGATIVE); PH,URINE 5 (5-9); PROTEIN,URINE 2+ (NEGATIVE); UROBILINOGEN,URINE 1 MG/DL (NORMAL)
[2018-09-29 08:34] LABS: BACTERIA,URINE NEGATIVE /HPF; BILIRUBIN,URINE 1+ (NEGATIVE); RBC,URINE 25-50 /HPF
[2018-09-29 08:34] LABS: ALANINE AMINOTRANSFERASE 106 U/L (0-55); ALBUMIN 4.7 GM/DL (3.2-4.5); ALKALINE PHOSPHATASE 73 U/L (40-136); BILIRUBIN,TOTAL 0.7 MG/DL (0.1-1.0); BUN/CREATININE RATIO 17; CALCIUM 9.8 MG/DL (8.5-10.1); CARBON DIOXIDE 18 MMOL/L (21-32); CHLORIDE 107 MMOL/L (98-107); CREATININE SERUM 1.14 MG/DL (0.60-1.30); GFR ESTIMATED > 60; GLUCOSE 118 MG/DL (70-105); POTASSIUM 3.7 MMOL/L (3.6-5.0); SODIUM 142 MMOL/L (135-145); TOTAL PROTEIN 7.8 GM/DL (6.4-8.2)
[2018-09-29 08:35] LABS: CALCIUM OXALATE CRYSTALS,UR MODERATE /LPF
--- NOTE | 2018-09-29 08:52 | ED GU-Male ---
General Chief Complaint: - Urinary Stated Complaint: R LOWER BACK PAIN Nursing Triage Note: PT AMB TO RM 9 WITH COMPLAINT OF POSSIBLE KIDNEY STONE. STATES PAIN STARTED AROUND 4 AM, N/V AND DIFFICULTY URINATING. Source: patient, family Exam Limitations: no limitations History of Present Illness Date Seen by Provider: Sep 29, 2018 Time Seen by Provider: 08:11 Initial Comments Here with report of present kidney stone to the right side. Had acute onset of right flank pain that radiates to the groin at 4 AM and feels like previous kidney stone. Has had multiple kidney stones but usually on the left. This is the first time she's had it on the right. Did have one episode of vomiting. Does report difficulty urinating. Denies blood in his urine or vomiting. Timing/Duration: this morning Severity/Quality: moderate, severe, sharp Location: right flank Radiation: groin Activities at Onset: sleep Prior Genitourinary Problems: similar symptoms Modifying Factors: Improves With Other (no aggravating or relieving factors) Associated Symptoms: lower back pain, nausea/vomiting Allergies and Home Medications Allergies Coded Allergies: No Known Drug Allergies (Unverified , 03/10/11) Home Medications Amlodipine Besylate 5 Mg Tablet, 5 MG PO DAILY, (Reported) Cephalexin 500 Mg Tablet, 500 MG PO BID Prescribed by: JANNY BERGER on 05/29/16 1055 Hydrocodone Bit/Acetaminophen 1 Tab Tab, 1 EACH PO Q6H PRN for BREAKTHROUGH PAIN Prescribed by: SOPHY SWAIN on 04/14/17 1256 Liraglutide 0.6 Mg/0.1 Ml Pen.injctr, 1.8 MG SQ DAILY, (Reported) Metformin HCl 1,000 Mg Tablet, 1,000 MG PO BID, (Reported) Multivitamin 1 Each Capsule, 1 EACH PO DAILY, (Reported) [place] 3 Polyunsat Fatty Acids 1,000 Mg Cap, 1,000 MG PO DAILY, (Reported) Omeprazole 20 Mg Tablet.dr, 20 MG PO DAILY, (Reported) Patient Home Medication List Home Medication List Reviewed: Yes Review of Systems Review of Systems Constitutional: see HPI; No chills, No fever EENTM: no symptoms reported Respiratory: no symptoms reported Cardiovascular: no symptoms reported Gastrointestinal: see HPI, nausea, vomiting Genitourinary: flank pain, pain Musculoskeletal: no symptoms reported All Other Systemes Reviewed Negative Unless Noted: Yes Past Qwhiwyb-Mjbrmi-Jrgstj Hx Past Med/Social Hx: Reviewed Nursing Past Med/Soc Hx Patient Social History Alcohol Use: Occasionally Uses Recreational Drug Use: No Smoking Status: Never a Smoker Type Used: Cigarettes Recent Foreign Travel: No Contact w/Someone Who Travel: No Recent Infectious Disease Expo: No Recent Hopitalizations: No Physical Abuse: No Sexual Abuse: No Mistreated: No Fear: No Immunizations Up To Date Tetanus Booster (TDap): Unknown PED Vaccines UTD: Yes Past Medical History Surgeries: Yes (right knee scope, ) Gallbladder Respiratory: Yes (SLEEP APNEA, USES CPAP) Cardiac: Yes Hypertension Neurological: No Reproductive Disorders: Yes Gastrointestinal: No Musculoskeletal: No Endocrine: Yes Diabetes, Non-Insulin dep Psychosocial: No Blood Disorders: No Family Medical History Reviewed Nursing Family Hx No Pertinent Family Hx Physical Exam Vital Signs Vital Signs - First Documented 09/29/18 08:00 Temp 98.1 Pulse 71 Resp 16 B/P (MAP) 150/89 (109) Pulse Ox 97 O2 Delivery Room Air Capillary Refill : Less Than 3 Seconds Height, Weight, BMI Height: 5'11.00" Weight: 300lbs. oz. [id number]; 42.53 BMI Method:Stated General Appearance: WD/WN, no apparent distress HEENT: PERRL/EOMI, pharynx normal Neck: full range of motion, supple Cardiovascular: regular rate, rhythm, no murmur Respiratory: lungs clear, normal breath sounds Gastrointestinal: non tender, soft Back: normal inspection, no vertebral tenderness, CVA tenderness (R) Extremities: non-tender, normal inspection Neurologic/Psychiatric: alert, oriented x 3 Skin: normal color, warm/dry Progress/Results/Core Measures Suspected Sepsis Recent Fever Within 48 Hours: No Infection Criteria Present: None New/Unexplained Altered Menta: No Sepsis Screen: No Definite Risk SIRS Temperature:98.1 Pulse: 71 Respiratory Rate: 16 Laboratory Tests 09/29/18 08:09: White Blood Count 9.8 Blood Pressure 150 /89 Mean: 109 Laboratory Tests 09/29/18 08:09: Creatinine 1.14, Platelet Count 308, Total Bilirubin 0.7 Results/Orders Lab Results Laboratory Tests Test 09/29/18 08:09 09/29/18 08:14 Range/Units White Blood Count 9.8 4.3-11.0 10^3/uL Red Blood Count 5.51 4.35-5.85 10^6/uL Hemoglobin 14.9 13.3-17.7 G/DL Hematocrit 45 40-54 % Mean Corpuscular Volume 81 80-99 FL Mean Corpuscular Hemoglobin 27 25-34 PG Mean Corpuscular Hemoglobin Concent 33 32-36 G/DL Red Cell Distribution Width 14.9 H 10.0-14.5 % Platelet Count 308 130-400 10^3/uL Mean Platelet Volume 10.6 H 7.4-10.4 FL Neutrophils (%) (Auto) 64 42-75 % Lymphocytes (%) (Auto) 26 12-44 % Monocytes (%) (Auto) 9 0-12 % Eosinophils (%) (Auto) 1 0-10 % Basophils (%) (Auto) 0 0-10 % Neutrophils # (Auto) 6.3 1.8-7.8 X 10^3 Lymphocytes # (Auto) 2.6 1.0-4.0 X 10^3 Monocytes # (Auto) 0.9 0.0-1.0 X 10^3 Eosinophils # (Auto) 0.1 0.0-0.3 10^3/uL Basophils # (Auto) 0.0 0.0-0.1 10^3/uL Sodium Level 142 135-145 MMOL/L Potassium Level 3.7 3.6-5.0 MMOL/L Chloride Level 107 98-107 MMOL/L Carbon Dioxide Level 18 L 21-32 MMOL/L Anion Gap 17 H 5-14 MMOL/L Blood Urea Nitrogen 19 H 7-18 MG/DL Creatinine 1.14 0.60-1.30 MG/DL Estimat Glomerular Filtration Rate > 60 BUN/Creatinine Ratio 17 Glucose Level 118 H 70-105 MG/DL Calcium Level 9.8 8.5-10.1 MG/DL Corrected Calcium 8.5-10.1 MG/DL Total Bilirubin 0.7 0.1-1.0 MG/DL Aspartate Amino Transf (AST/SGOT) 56 H 5-34 U/L Alanine Aminotransferase (ALT/SGPT) 106 H 0-55 U/L Alkaline Phosphatase 73 40-136 U/L C-Reactive Protein High Sensitivity 0.77 H 0.00-0.50 MG/DL Total Protein 7.8 6.4-8.2 GM/DL Albumin 4.7 H 3.2-4.5 GM/DL Urine Color YELLOW Urine Clarity CLEAR Urine pH 5 5-9 Urine Specific [place] 1.030 H 1.016-1.022 Urine Protein 2+ H NEGATIVE Urine Glucose (UA) NEGATIVE NEGATIVE Urine Ketones 1+ H NEGATIVE Urine Nitrite NEGATIVE NEGATIVE Urine Bilirubin 1+ H NEGATIVE Urine Urobilinogen 1 NORMAL MG/DL Urine Leukocyte Esterase NEGATIVE NEGATIVE Urine RBC (Auto) 5+ H NEGATIVE Urine RBC 25-50 H /HPF Urine WBC NONE /HPF Urine Squamous Epithelial Cells NONE /HPF Urine Crystals PRESENT H /LPF Urine Calcium Oxalate Crystals MODERATE H /LPF Urine Bacteria NEGATIVE /HPF Urine Casts NONE /LPF Urine Mucus SMALL H /LPF Urine Culture Indicated NO My Orders Orders - JANNY BERGER MD Cbc With Automated Diff (09/29/18 08:11) Comprehensive Metabolic Panel (09/29/18 08:11) Hs C Reactive Protein (09/29/18 08:11) Ondansetron Injection (Zofran Injectio (09/29/18 08:15) Ns Iv 1000 Ml (Sodium Chloride 0.9%) (09/29/18 08:11) Ed Iv/Invasive Line Start (09/29/18 08:11) Fentanyl Injection (Sublimaze Injection (09/29/18 08:11) Ketorolac Injection (Toradol Injection) (09/29/18 08:11) Ketorolac Injection (Toradol Injection) (09/29/18 08:10) Ct Abd/Pelvis Wo(Kidney Stone) (09/29/18 08:38) Abdomen/Kub 1view (09/29/18 10:20) Medications Given in ED Current Medications Medications Dose Ordered Sig/Leon Route Start Time Stop Time Status Last Admin Dose Admin Ondansetron HCl 4 mg ONCE ONCE IVP 09/29/18 08:15 09/29/18 08:16 DC 09/29/18 08:24 4 MG Vital Signs/I&O 09/29/18 08:00 Temp 98.1 Pulse 71 Resp 16 B/P (MAP) 150/89 (109) Pulse Ox 97 O2 Delivery Room Air Capillary Refill : Less Than 3 Seconds Blood Pressure Mean: 109 Progress Note : Progress Note Seen and evaluated. IV, labs, UA, normal saline 1 L bolus, Zofran 4 mg IV, Toradol 30 mg IV and fentanyl [address] abdomen pelvis kidney stone protocol ordered. Monitor patient. 1015: Pain is improved. CT does show 3 mm stone just outside the bladder. This very well pass on its own. This was discussed with the patient. We'll go ahead and get a KUB and I'll give him information for Dr. Torres. Discharged home with return precautions. Patient verbalize understanding instructions and agreement with plan. Diagnostic Imaging Diagonstic Imaging: CT Plain Films/CT/US/NM/MRI: abdomen, pelvis Comments [facility] [place], [place] NAME: PHIL GUY [facility] REC#: [id number] PT STATUS: REG ER : 1980 PHYSICIAN: JANNY BERGER MD ADMIT DATE: 09/29/18/ER Draft Date of Exam:09/29/18 CT ABD/PELVIS WO(KIDNEY STONE) INDICATION: Abdominal pain and difficulty urinating. TECHNIQUE: The CT abdomen and pelvis was obtained without IV contrast. COMPARISON: 04/14/2017. FINDINGS: The visualized portions of the lung bases are clear. There are no pleural fluid collections. There is no free intraperitoneal air. The liver shows diffuse low-density change, compatible with fatty infiltration. The gallbladder is surgically absent. The spleen, adrenals, and pancreas are normal in appearance. The left kidney appears normal except for a few scattered tiny intrarenal calculi measuring less than 2 mm. There is no left hydronephrosis or hydroureter. On the right side, there is a small 1-2 mm stone in the upper pole calyceal region. There is hydronephrosis on the right side with hydroureter down to the level of a 3 mm stone in the right distal ureter just above the UVJ. There is no retroperitoneal mass or adenopathy. There is no ascites or abnormal fluid collection. The visualized bowel loops are unremarkable. There is no pelvic mass or free fluid. IMPRESSION: There is right hydronephrosis and hydroureter secondary to a 3 mm stone in the right distal ureter just above the UVJ. There are small intrarenal calculi in both kidneys. There is fatty infiltration of the liver. The patient has had prior cholecystectomy. Dictated on workstation # [id number] Dict: 09/29/18 0939 Trans: 09/29/18 0955 [id number] Interpreted by: KARL POWER MD Electronically signed by: Reviewed: Reviewed by Me Departure Impression Primary Impression: Ureteral calculus, right Disposition: 01 HOME, SELF-CARE Condition: Improved Departure-Patient Inst. Decision time for Depature: 10:34 Referrals: MARK GOVEA DO (PCP/Family) Primary Care Physician TRACEE TORRES MD Patient Instructions: Kidney Stones (DC) Add. Discharge Instructions: All discharge instructions reviewed with patient and/or family. Voiced understanding. Take medications as directed. Drink plenty of fluids. Follow-up with Dr. Torres for recheck and further evaluation. Return for worse pain, fever, vomiting, weakness, breathing problems or other concerns as needed. You may take ibuprofen 800 mg every 8 hours as needed for pain and I recommend you schedule this every 8 hours for the next 3 days and then take as needed. You may take Tylenol/acetam inophen 1000 mg every 8 hours as needed for pain if you're not taking the prescribed pain medicine but do not take both at the same time as they both have acetaminophen in them. Scripts Hydrocodone Bit/Acetaminophen (LORTAB 7.5 MG TABLET) 1 Ea Tablet 1 EACH PO Q6H PRN for PAIN-MODERATE, #10 TAB 0 Refills Prov: JANNY BERGER MD 09/29/18 Cephalexin (Cephalexin) 500 Mg Tablet 500 MG PO BID, #14 TAB 0 Refills Prov: JANNY BERGER MD 09/29/18 Tamsulosin HCl (Flomax) 0.4 Mg Cap 0.4 MG PO DAILY, #14 CAP 0 Refills Prov: JANNY BERGER MD 09/29/18 Copy Copies To 1: TRACEE TORRES MD, TIMOTHY D MD Sep 29, 2018 08:52
--- NOTE | 2018-09-29 09:56 | Diagnostic Imaging Report ---
INDICATION: Abdominal pain and difficulty urinating. TECHNIQUE: The CT abdomen and pelvis was obtained without IV contrast. COMPARISON: 04/14/2017. FINDINGS: The visualized portions of the lung bases are clear. There are no pleural fluid collections. There is no free intraperitoneal air. The liver shows diffuse low-density change, compatible with fatty infiltration. The gallbladder is surgically absent. The spleen, adrenals, and pancreas are normal in appearance. The left kidney appears normal except for a few scattered tiny intrarenal calculi measuring less than 2 mm. There is no left hydronephrosis or hydroureter. On the right side, there is a small 1-2 mm stone in the upper pole calyceal region. There is hydronephrosis on the right side with hydroureter down to the level of a 3 mm stone in the right distal ureter just above the UVJ. There is no retroperitoneal mass or adenopathy. There is no ascites or abnormal fluid collection. The visualized bowel loops are unremarkable. There is no pelvic mass or free fluid. IMPRESSION: There is right hydronephrosis and hydroureter secondary to a 3 mm stone in the right distal ureter just above the UVJ. There are small intrarenal calculi in both kidneys. There is fatty infiltration of the liver. The patient has had prior cholecystectomy. Dictated by: Dictated on workstation # [id number]
[2018-09-29] MEDS ORDERED: TAMS0.4C98 PO (10:37)
[2018-09-29] MEDS ORDERED: CEPH500T PO (10:37)
[2018-09-29] MEDS ORDERED: HYDR-34 PO (10:37)
[2018-09-29 11:21] VITALS: BP 125/66
--- NOTE | 2018-09-29 11:48 | Diagnostic Imaging Report ---
INDICATION: Right flank pain. History of kidney stones. COMPARISON: CT abdomen and pelvis performed earlier same day. FINDINGS AND IMPRESSION: 1. The previously noted tiny bilateral renal stones are not appreciated by radiography. 2. The tiny distal right ureteral stone may be in similar position, although this could be a phlebolith. CT better evaluates this finding. 3. Cholecystectomy. Dictated by: Dictated on workstation # [id number]
== END 2018-09-29 11:21 | disposition home or self-care (01) ==
LOC: EDUNIT# 07:48 → ER 07:49
DX: N13.2 Hydronephrosis with renal and ureteral calculous obstruction (principal); I10 Essential (primary) hypertension; E11.9 Type 2 diabetes mellitus without complications; G47.30 Sleep apnea, unspecified; Z79.84 Long term (current) use of oral hypoglycemic drugs; Z99.89 Dependence on other enabling machines and devices
CPT/HCPCS: 36415; 74018; 74176; 80053; 81000; 85025; 86141; 96361; 96374; 96375

== ENCOUNTER → 2018-10-21 | Outpatient (CLI) | payer BC ==
[~2018-10-21] MED LIST changes: +HYDR-34 PO; +TAMS0.4C98 PO
--- NOTE | 2018-10-21 13:22 | Diagnostic Imaging Report ---
INDICATION: Nephrolithiasis KUB 12:43 p.m. FINDINGS: There are nicola in the right upper quadrant from prior surgery. Bowel gas pattern is normal. There is a 2 mm opacity in the right lower pelvis near the ureterovesical junction that could be a ureteral calculus. This is unchanged since 09/29/2009. Alternatively it could be a phlebolith. IMPRESSION: Stable KUB. The small opacity in the right lower pelvis is unchanged. Dictated by: Dictated on workstation # [id number]
== END ==
LOC: RAD 12:34
PROVIDERS: ATTEND Urology
DX: N20.1 Calculus of ureter (principal); N94.89 Other specified conditions associated with female genital organs and menstrual cycle
CPT/HCPCS: 74018

== ENCOUNTER 2018-10-25 10:24 | Outpatient (RCR) | payer BC | END 2019-01-23 | disposition home or self-care (01) | LOC: LAB 10:24 | PROVIDERS: ATTEND Urology | DX: N20.0 Calculus of kidney (principal) | CPT/HCPCS: 36415; 82140; 82340; 82507; 82570; 83735; 83945; 83986; 84105; 84133; 84300; 84392; 84560 ==

== ENCOUNTER → 2019-05-18 | Outpatient (CLI) | payer BC ==
[~2019-05-18] MED LIST changes: -TAMS0.4C98 PO; +TMSL.4C PO
[2019-05-18 12:52] LABS: BASOPHILS % (AUTO) 1 % (0-10); EOSINOPHILS # (AUTO) 0.1 10^3/uL (0.0-0.3); EOSINOPHILS % (AUTO) 1 % (0-10); HEMATOCRIT 44 % (40-54); HEMOGLOBIN 14.9 G/DL (13.3-17.7); LYMPHOCYTES % (AUTO) 38 % (12-44); MEAN CORPUSCULAR HEMOGLOBIN 27 PG (25-34); MEAN CORPUSCULAR HGB CONC 34 G/DL (32-36); MEAN CORPUSCULAR VOLUME 79 FL (80-99); MEAN PLATELET VOLUME 10.2 FL (7.4-10.4); MONOCYTES # (AUTO) 0.9 X 10^3 (0.0-1.0); MONOCYTES % (AUTO) 11 % (0-12); NEUTROPHILS % (AUTO) 50 % (42-75); PLATELET COUNT 334 10^3/uL (130-400); RED CELL DISTRIBUTION WIDTH 15.4 % (10.0-14.5)
[2019-05-18 13:13] LABS: ALANINE AMINOTRANSFERASE 91 U/L (0-55); ALBUMIN 4.6 GM/DL (3.2-4.5); ALKALINE PHOSPHATASE 70 U/L (40-136); BILIRUBIN,TOTAL 0.6 MG/DL (0.1-1.0); BUN/CREATININE RATIO 18; CALCIUM 9.1 MG/DL (8.5-10.1); CARBON DIOXIDE 21 MMOL/L (21-32); CHLORIDE 108 MMOL/L (98-107); CREATININE SERUM 0.84 MG/DL (0.60-1.30); GFR ESTIMATED > 60; GLUCOSE 83 MG/DL (70-105); POTASSIUM 3.8 MMOL/L (3.6-5.0); SODIUM 138 MMOL/L (135-145); TOTAL PROTEIN 7.4 GM/DL (6.4-8.2)
[2019-05-18 13:22] LABS: CREATINE KINASE MB 1.3 NG/ML (<6.6)
== END ==
LOC: LAB 12:32
PROVIDERS: ATTEND Nurse Practitioner Family
DX: R07.9 Chest pain, unspecified (principal); J45.998 Other asthma; I10 Essential (primary) hypertension; E11.9 Type 2 diabetes mellitus without complications; K76.0 Fatty (change of) liver, not elsewhere classified; K21.9 Gastro-esophageal reflux disease without esophagitis; E66.9 Obesity, unspecified
CPT/HCPCS: 36415; 80053; 82553; 83874; 84484; 85025